=== PATIENT | female | born 1930 | race Caucasian/White ===

== ENCOUNTER 2020-11-20 22:43 | Inpatient (IN) | payer MEDICARE, OTHER ==
[~2020-11-20] VITALS: Ht 157.5 cm; Wt 56.9 kg
[~2020-11-20 22:43] MED LIST: AMARYL2 MG PO; ASPIRIN EC81 MG PO; CALCIUM PO; CARDIZEM CD180 MG PO; CARDIZEM60 MG PO; CEFDINIR300 MG PO; CENTRUM SILVER1 EAC1 PO; ELIQUIS2.5 MG PO; JANUMET XR 50-1 EAC1 PO; LASIX80 MG PO; LIPITOR40 MG PO; MACROBID100 MG PO; MIRTAZAPINE 15M15 MG PO; NASONEX NAS120 PUFFS; NITROQUIK SL0.4 MG SL; PEPCID AC20 MG PO; TOPROL XL 50 MG50 MG PO; UROCIT-K10 MEQ PO; XOPENEX (11.25 MG/3 NEB; ZESTRIL2.5 MG PO
[2020-11-21 00:45] LABS: BASOPHIL 0.4 % (0-2); EOSINOPHIL 0.1 % (0-7); HCT 45.7 % (37.0-47.0); HGB 13.5 g/dl (12.5-16.0); LYMPHOCYTE 2.4 % (15-48); MCHC 29.5 g/dL (32.0-36.0); MCV 88.1 fL (78.0-100.0); MONOCYTE 2.7 % (0-12); MPV 10.6 fL (6.0-9.5); NRBC 0; PLT 345 K/uL (150-400); RBC 5.19 M/uL (4.20-5.40); RDW 16.9 % (11.5-14.0)
[2020-11-21 00:46] LABS: NEUTROPHIL 93.5 % (41-80)
[2020-11-21 00:47] LABS: WBC 29.8 K/uL (4.0-10.5)
[2020-11-21 01:43] LABS: ALBUMIN 2.8 g/dL (3.4-5.0); BILIRUBIN - TOTAL 1.4 mg/dL (0.2-1.0); BUN/CREAT RATIO (CALC) 27.5 RATIO; CREATININE 0.91 mg/dL (0.51-0.95); GLOBULIN (CALCULATION) 3.9 g/dL; POTASSIUM 4.1 mmol/L (3.5-5.1); TOTAL PROTEIN 6.7 g/dL (6.4-8.2)
[2020-11-21 01:44] LABS: LACTIC ACID 4.7 mmol/L (0.4-1.9)
[2020-11-21 06:08] LABS: CORONAVIRUS 2019 SARS-COV-2 NEGATIVE (NEGATIVE); INFLUENZA A NAA NEGATIVE (NEGATIVE)
[2020-11-21] MEDS ORDERED: K-DUR20 MEQ PO (08:59)
[2020-11-21] MEDS ORDERED: TORSEMIDE20 MG PO (09:00)
[2020-11-21] MEDS ORDERED: SEROQUEL 25MG T25 MG PO (09:01)
[2020-11-21 13:48] LABS: BUN/CREAT RATIO (CALC) 31.4 RATIO; CREATININE 1.02 mg/dL (0.51-0.95); PHOSPHORUS 5.6 mg/dL (2.6-4.7); POTASSIUM 4.6 mmol/L (3.5-5.1)
[2020-11-21 14:08] LABS: BASOPHIL 0.2 % (0-2); EOSINOPHIL 0.6 % (0-7); HCT 37.5 % (37.0-47.0); LYMPHOCYTE 2.6 % (15-48); MCH 26.4 pg (25.0-31.0); MCHC 29.3 g/dL (32.0-36.0); MCV 89.9 fL (78.0-100.0); MONOCYTE 3.4 % (0-12); MPV 10.9 fL (6.0-9.5); NEUTROPHIL 92.9 % (41-80); NRBC 0; PLT 295 K/uL (150-400); RBC 4.17 M/uL (4.20-5.40); RDW 16.5 % (11.5-14.0)
[2020-11-21 14:27] LABS: WBC 18.6 K/uL (4.0-10.5)
[2020-11-21 14:45] LABS: BAND 20 % (0-10); LYMPHOCYTE(M) 1 % (15-48); MONOCYTE(M) 2 % (0-12); NEUTROPHILS(M) 77 % (41-80); TOTAL CELL COUNT 100
[2020-11-21 14:47] LABS: PLATELET ESTIMATE NORMAL; PLATELET MORPHOLOGY NORMAL
--- NOTE | 2020-11-21 17:09 | NUR ---
MET WITH PT. AND HER DAUGHTER, MARCOS. PER PT. DAUGHTER SHE ADVISED THAT PT. RESIDES WTIH A DAUGHTER BY THE NAME OF WIL. WIL WOULD BE THE ONE TO SPEAK WITH REGARDING WHAT PATIENT HAS AND WHAT HOME HEALTH SHE WOULD WANT. GAVE MARCOS MY PHONE NUMBER TO CONTACT
[2020-11-22 06:30] LABS: BASOPHIL 0.3 % (0-2); EOSINOPHIL 0.3 % (0-7); HCT 36.5 % (37.0-47.0); HGB 10.5 g/dl (12.5-16.0); LYMPHOCYTE 3.2 % (15-48); MCH 25.8 pg (25.0-31.0); MCHC 28.8 g/dL (32.0-36.0); MCV 89.7 fL (78.0-100.0); MONOCYTE 8.3 % (0-12); MPV 11.2 fL (6.0-9.5); NRBC 0; PLT 282 K/uL (150-400); RBC 4.07 M/uL (4.20-5.40); RDW 16.8 % (11.5-14.0); WBC 15.3 K/uL (4.0-10.5)
[2020-11-22 06:33] LABS: NEUTROPHIL 87.5 % (41-80)
[2020-11-22 07:08] LABS: PRO-BNP >35000 pg/mL (<450)
[2020-11-22 08:45] LABS: ALBUMIN 2.3 g/dL (3.4-5.0); BILIRUBIN - TOTAL 0.8 mg/dL (0.2-1.0); BUN/CREAT RATIO (CALC) 31.5 RATIO; CREATININE 1.49 mg/dL (0.51-0.95); GLOBULIN (CALCULATION) 3.5 g/dL; MAGNESIUM 2.2 mg/dL (1.8-2.4); PHOSPHORUS 6.9 mg/dL (2.6-4.7); POTASSIUM 4.7 mmol/L (3.5-5.1); TOTAL PROTEIN 5.8 g/dL (6.4-8.2)
[2020-11-22 17:27] LABS: BILIRUBIN 1+ mg/dL (NEGATIVE); BLOOD NEGATIVE Ery/uL (NEGATIVE); GLUCOSE (U) NORMAL (NORMAL); LEUKOCYTES NEGATIVE Leu/uL (NEGATIVE); NITRITE POSITIVE (NEGATIVE); PROTEIN TRACE (LOW) mg/dL (NEGATIVE)
[2020-11-22 17:29] LABS: COLOR AMBER (YELLOW)
[2020-11-22 17:30] LABS: CLARITY SLIGHTLY HAZY (CLEAR)
[2020-11-22 17:39] LABS: BACTERIA TRACE; URINARY RBC RARE
[2020-11-23 06:34] LABS: BASOPHIL 0.2 % (0-2); EOSINOPHIL 0 % (0-7); HCT 35.4 % (37.0-47.0); HGB 10.2 g/dl (12.5-16.0); LYMPHOCYTE 2.9 % (15-48); MCH 26.2 pg (25.0-31.0); MCHC 28.8 g/dL (32.0-36.0); MONOCYTE 6.3 % (0-12); MPV 10.8 fL (6.0-9.5); NRBC 0; PLT 249 K/uL (150-400); RBC 3.89 M/uL (4.20-5.40); RDW 17.1 % (11.5-14.0); WBC 8.7 K/uL (4.0-10.5)
[2020-11-23 07:02] LABS: PRO-BNP > 35000 pg/mL (<450)
[2020-11-23 07:22] LABS: BILIRUBIN - TOTAL 0.6 mg/dL (0.2-1.0); BUN/CREAT RATIO (CALC) 31.1 RATIO; CREATININE 1.8 mg/dL (0.51-0.95); GLOBULIN (CALCULATION) 3.5 g/dL; POTASSIUM 3.6 mmol/L (3.5-5.1); TOTAL PROTEIN 5.5 g/dL (6.4-8.2)
[2020-11-24 07:11] LABS: PRO-BNP > 35000 pg/mL (<450)
[2020-11-24 07:18] LABS: ALBUMIN 1.8 g/dL (3.4-5.0); BILIRUBIN - TOTAL 0.4 mg/dL (0.2-1.0); BUN/CREAT RATIO (CALC) 30.9 RATIO; CREATININE 1.78 mg/dL (0.51-0.95); GLOBULIN (CALCULATION) 3.5 g/dL; MAGNESIUM 2.1 mg/dL (1.8-2.4); PHOSPHORUS 5.1 mg/dL (2.6-4.7); POTASSIUM 3.8 mmol/L (3.5-5.1); TOTAL PROTEIN 5.3 g/dL (6.4-8.2)
[2020-11-24 07:42] LABS: BASOPHIL 0.3 % (0-2); EOSINOPHIL 0.1 % (0-7); HCT 35.1 % (37.0-47.0); HGB 9.9 g/dl (12.5-16.0); LYMPHOCYTE 3.2 % (15-48); MCH 25.9 pg (25.0-31.0); MCHC 28.2 g/dL (32.0-36.0); MCV 91.9 fL (78.0-100.0); MONOCYTE 6.4 % (0-12); MPV 11.5 fL (6.0-9.5); NEUTROPHIL 89.4 % (41-80); NRBC 0; PLT 202 K/uL (150-400); RBC 3.82 M/uL (4.20-5.40); RDW 17.2 % (11.5-14.0); WBC 7.8 K/uL (4.0-10.5)
[2020-11-25 06:02] LABS: BASOPHIL 0.2 % (0-2); EOSINOPHIL 0.1 % (0-7); HCT 34.4 % (37.0-47.0); HGB 9.7 g/dl (12.5-16.0); LYMPHOCYTE 3.2 % (15-48); MCH 25.7 pg (25.0-31.0); MCHC 28.2 g/dL (32.0-36.0); NEUTROPHIL 89.5 % (41-80); NRBC 0; PLT 169 K/uL (150-400); RBC 3.78 M/uL (4.20-5.40); RDW 17.1 % (11.5-14.0); WBC 9.3 K/uL (4.0-10.5)
[2020-11-25 06:34] LABS: BUN/CREAT RATIO (CALC) 31.6 RATIO; CREATININE 1.74 mg/dL (0.51-0.95); MAGNESIUM 2.1 mg/dL (1.8-2.4); POTASSIUM 3.1 mmol/L (3.5-5.1)
[2020-11-25 10:33] LABS: ALBUMIN 1.7 g/dL (3.4-5.0); BILIRUBIN - TOTAL 0.3 mg/dL (0.2-1.0); BUN/CREAT RATIO (CALC) 28.7 RATIO; CREATININE 1.74 mg/dL (0.51-0.95); GLOBULIN (CALCULATION) 3.4 g/dL; POTASSIUM 3.3 mmol/L (3.5-5.1); TOTAL PROTEIN 5.1 g/dL (6.4-8.2)
[2020-11-25 11:26] LABS: PRO-BNP > 35000 pg/mL (<450)
--- NOTE | 2020-11-25 13:14 | NUR ---
11/25 Emotional support is being provided with the family.
[2020-11-26 03:58] LABS: BASOPHIL 0.2 % (0-2); EOSINOPHIL 0.1 % (0-7); HCT 35.5 % (37.0-47.0); HGB 9.9 g/dl (12.5-16.0); LYMPHOCYTE 3.3 % (15-48); MCH 25.8 pg (25.0-31.0); MCHC 27.9 g/dL (32.0-36.0); MCV 92.4 fL (78.0-100.0); MONOCYTE 6.4 % (0-12); NEUTROPHIL 88.9 % (41-80); NRBC 0; PLT 137 K/uL (150-400); RBC 3.84 M/uL (4.20-5.40); RDW 17.1 % (11.5-14.0); WBC 10.6 K/uL (4.0-10.5)
[2020-11-26 04:28] LABS: BUN/CREAT RATIO (CALC) 28.8 RATIO; CREATININE 1.6 mg/dL (0.51-0.95); POTASSIUM 3.3 mmol/L (3.5-5.1)
--- NOTE | 2020-11-27 09:49 | NUR ---
PER DR. PAT, PT ON 11/26/20 @ 7:33 P.M.
== END 2020-11-26 20:45 | disposition expired | DRG 871 ==
LOC: FER 22:43 → FMS 11-21 03:54 → FTCU 11-21 03:54 → FMS 11-21 05:59 → FTCU 11-21 06:01
PROVIDERS: Emergency Medicine; ADMIT Internal Medicine
DX: A41.9 Sepsis, unspecified organism (principal); I21.4 Non-ST elevation (NSTEMI) myocardial infarction; I50.23 Acute on chronic systolic (congestive) heart failure; K55.031 Focal (segmental) acute (reversible) ischemia of large intestine; E87.2 Acidosis; E87.0 Hyperosmolality and hypernatremia; N17.9 Acute kidney failure, unspecified; N30.00 Acute cystitis without hematuria; A09 Infectious gastroenteritis and colitis, unspecified; I48.20 Chronic atrial fibrillation, unspecified; K56.7 Ileus, unspecified; Z66 Do not resuscitate; R65.20 Severe sepsis without septic shock; Z51.5 Encounter for palliative care; Z95.1 Presence of aortocoronary bypass graft; E11.9 Type 2 diabetes mellitus without complications; E86.0 Dehydration; I25.10 Atherosclerotic heart disease of native coronary artery without angina pectoris; I25.2 Old myocardial infarction; Z79.01 Long term (current) use of anticoagulants; Z88.1 Allergy status to other antibiotic agents; Z20.822 Contact with and (suspected) exposure to COVID-19; Z99.81 Dependence on supplemental oxygen
CPT/HCPCS: 36415; 80048; 80053; 80162; 81001; 82150; 82607; 82962; 83605; 83690; 83735; 83880; 84100; 84145; 84484; 85025; 87040; 87088; 93005; 94010; C9113; J1160; J1650; J2270; J2405; J2543; J3360; J3480; J7030; J7040; J7042; J7120; Q9967; U0002